=== PATIENT | female | born 1975 | race Caucasian/White ===

== ENCOUNTER 2019-02-21 23:51 | Emergency (ER) | payer BC ==
[~2019-02-21] VITALS: Ht 152.4 cm; Wt 89.4 kg
[2019-02-22 00:06] VITALS: Ht 152.4 cm; Wt 89.4 kg
[2019-02-22 00:23] VITALS: BP 119/69
== END 2019-02-22 00:23 | disposition home or self-care (01) ==
LOC: ED 23:51
DX: F41.9 Anxiety disorder, unspecified (principal); F32.9 Major depressive disorder, single episode, unspecified; F43.10 Post-traumatic stress disorder, unspecified

== ENCOUNTER 2020-10-06 20:34 | Emergency (ER) | payer OTHER ==
[~2020-10-06] VITALS: Ht 152.4 cm; Wt 81.6 kg
[2020-10-06 20:58] VITALS: Ht 152.4 cm; Wt 81.6 kg
[2020-10-06 21:59] LABS: BASOPHIL % 0.4 % (0-2); PLATELET COUNT 330 x10^3mcL (130-400); RED CELL DISTRIBUTION WIDTH 16.3 % (11.5-14.5)
[2020-10-06 22:30] LABS: CALCIUM 8.9 mg/dL (8.5-10.1); CARBON DIOXIDE 26.4 mmol/L (21-32); CHLORIDE SERUM 103 mmol/L (98-107); CREATININE SERUM 0.8 mg/dL (0.6-1.0); GFR1 > 60 mL/min; GLUCOSE SERUM 196 mg/dL (74-106); POTASSIUM SERUM 3.6 mmol/L (3.5-5.1); SODIUM SERUM 139 mmol/L (136-145)
[2020-10-06 22:36] LABS: ALKALINE PHOSPHATASE 85 U/L (46-116); ALT/SGPT 26 U/L (14-59); AST/SGOT 10 U/L (15-37); BILIRUBIN TOTAL 0.16 mg/dL (0.20-1.00); TOTAL PROTEIN, SERUM 7.5 g/dL (6.4-8.2)
[2020-10-06 22:48] LABS: ALBUMIN 3.2 g/dL (3.4-5.0)
[2020-10-06 23:49] VITALS: BP 118/78
== END 2020-10-06 23:49 | disposition home or self-care (01) ==
LOC: ED 20:34
PROVIDERS: Emergency Medicine
DX: M25.562 Pain in left knee (principal); R22.42 Localized swelling, mass and lump, left lower limb; X58.XXXA Exposure to other specified factors, initial encounter; Y93.89 Activity, other specified; Y92.89 Other specified places as the place of occurrence of the external cause; Y99.0 Civilian activity done for income or pay
CPT/HCPCS: 85378; J1885